=== PATIENT | male | born 1940 | race Caucasian/White ===

== ENCOUNTER 2016-09-20 09:39 | Emergency (ER) | payer MEDICARE, BC ==
[2016-09-20] MEDS ORDERED: ASPIRIN EC81 MG PO (10:07)
[2016-09-20] MEDS ORDERED: TENORMIN25 M1 PO (10:08)
[2016-09-20] MEDS ORDERED: FLAXSEED OIL1000 M3 PO (10:08)
[2016-09-20] MEDS ORDERED: COZAAR50 M1 PO (10:08)
[2016-09-20] MEDS ORDERED: UBIQUINOL PO (10:09)
[2016-09-20] MEDS ORDERED: CARDURA1 M1 PO (10:10)
[2016-09-20] MEDS ORDERED: MULTIVITAMINS1 EAC6 PO (10:11)
[2016-09-20 10:50] LABS: BASO % 0.4 % (0-2); EOS % 0.4 % (0-7); HCT-HEMATOCRIT 40.3 % (36.0-53.5); HGB-HEMOGLOBIN 13.4 gm/dl (13.5-17.0); IMMATURE GRANULOCYTES ABSOLUTE 0.02 tho/cmm (0-0.03); IMMATURE GRANULOCYTES PERCENT 0.2 % (0-0.3); LYMPH % 11.9 % (20-45); MCH (MEAN CORPUSCULAR HGB) 32.1 pg (28.0-32.0); MCHC MEAN CORPUSCULAR HGB CONC 33.3 % (32.0-36.0); MCV (MEAN CELL VOLUME) 96.4 fl (82.0-96.0); MEAN PLATELET VOLUME 10.4 cmc (9.4-12.4); MONO % 8.1 % (0-12); MONOCYTE ABSOLUTE COUNT 0.7 tho/cmm (0.0-1.2); NEUTROPHIL ABSOLUTE COUNT 6.4 tho/cmm (1.6-8.0); NEUTROPHIL-AUTOMATED 6.4 tho/cmm (1.6-8.0); PLATELET COUNT 138 tho/cmm (150-450); RED BLOOD COUNT 4.18 mil/cmm (4.40-5.70); RED CELL DISTRIBUTION WIDTH 12.7 % (12.4-16.4); WHITE BLOOD COUNT 8.1 tho/cmm (4.0-10.0)
[2016-09-20 11:39] LABS: ANION GAP 16 mmol/L (0-20); BLOOD UREA NITROGEN 19 mg/dl (6-24); CALCIUM 7.9 mg/dl (8.5-10.5); CARBON DIOXIDE-VENOUS 25 mmol/L (22-32); CHLORIDE 105 mmol/l (96-110); GLUCOSE 143 mg/dL (70-110); SODIUM 141 mmol/L (135-145)
[2016-09-20 11:43] LABS: CREATININE 1.28 mg/dl (0.60-1.30); POTASSIUM 4.5 mmol/L (3.7-5.1); eGFR VALUE FOR BLACK 64 mL/Min
== END 2016-09-20 12:21 ==
LOC: EDMED 09:39
PROVIDERS: Emergency Medicine
DX: R55 Syncope and collapse (principal); E86.0 Dehydration; I25.10 Atherosclerotic heart disease of native coronary artery without angina pectoris; I10 Essential (primary) hypertension; Z95.5 Presence of coronary angioplasty implant and graft; Z90.49 Acquired absence of other specified parts of digestive tract; Z79.82 Long term (current) use of aspirin; Z79.899 Other long term (current) drug therapy
CPT/HCPCS: J7030